=== PATIENT | female | born 1995 | race Caucasian/White ===

== ENCOUNTER 2023-06-17 12:47 | Outpatient (CLI) | payer BC ==
--- NOTE | 2023-06-17 13:45 | Sleep Patient Instructions ---
Sleep Center Visit Summary - Patient Visit Information Reason for Visit: Initial consultation - Patient Instructions Additional Instructions: You will continue with CPAP therapy with pressure set at 14 cmH2O. A supply prescription will be updated with your DME once we have a copy of sleep study. We encourage you to continue to try to lose weight. Please follow up with the sleep care office in 6 months. - Clinic Information Contact: [facility] [address] [place] [address] [email or web address] T: [phone]
--- NOTE | 2023-06-17 13:52 | SLEEP CARE CONSULTATION ---
Information from patient questionnaire entered by Jeet Hernandez. I have reviewed and concur with the information entered by Jeet Hernandez. This document represents the service I personally performed and the decisions made by me, Beverly Polanco ARNP. History of Present Illness Service Date and Time: 06/17/2023 1247 Reason for Visit: New patient, Previously diagnosed sleep apnea, sleep apnea on CPAP therapy Chief Complaint: reports: Other (UPDATE SUPPLIES) Date of Onset: 2014 Usual bedtime: ANYWHERE FROM 10PM-4AM Time it takes to fall asleep: HR Snores at night: Yes Observed to quit breathing while asleep: Yes Sleeps alone due to snoring: No Number of times waking at night: A FEW Reasons for waking at night: reports: Bathroom (PAIN UNKNOWN) Toss, Turn, or Twitch while sleeping: Yes Recalls having dreams: Yes Usually gets out of bed at: 10AM Feels refreshed in the morning: No Morning headache: No Sleepy or fatigued during the day: Yes Ever fallen asleep while driving: Yes Takes day naps: Yes Dreams during day naps: No Prior sleep studies: Yes Additional HPI information: LENORE SHUKLA was previously diagnosed to have unknown, AHI unknown, obstructive sleep apnea-hypopnea syndrome and comes in today to establish care for CPAP therapy. - Parasomnia Symptoms Ever been unable to move upon waking from sleep: No Walks in sleep: No Talks in sleep: No Ever acted out dreams in sleep: No Ever felt weak in the knees when startled or emotional: No Bothered by creepy, crawly, restless sensations in legs: No Problems with memory or concentration: No CPAP Compliance Data - Data Reviewed with Patient Average duration of nightly device use: 7 hours 22 minutes Compliance rate %: 97.8 (90/90 days used) Current pressure setting (cmH2O): 14 Average residual AHI: 0.8 Central apnea: 0 Obstructive apnea: 0.6 Hypopnea: 0.2 Average large leak: 3 secs Compliance data discussion: She has a Dreamstation that has not yet been replaced. She does not have a DME right now for supplies. She is using a nasal cushion mask. Subjective Patient concerns: reports: mask discomfort (has to tighten and will cause soreness on face), condensation in mask/hose (once, couple nights ago). denies: aerophagia, air blowing in eyes, mask leak noise, nasal congestion, dry mouth, nose, throat, epistaxis Observed to snore while using device: No Current pressure setting perceived as: comfortable On therapy, patient: reports: sleeping better, awakening more refreshed, being more awake and alert during the day, more rested overall. denies: drowsiness while driving Initial [place] Sleepiness Scale score: 7 (06/17/23) Past Medical History Past Medical History: reports: Diabetes, Anxiety, Depression, Attention deficit (ADHD) Social History The patient's occupation is a [employer]. Patient is and lives in [place]. Have you smoked in the past 12 months: No Alcohol use: Yes Alcohol amount and frequency: A DRINK EVERY OTHER WEEK Caffeine use: No Family History Family history of sleep disordered breathing: Yes Family Hx Sleep Apnea: Mother: Snoring, Sleep apnea - Treated, Father: Snoring, Sleep apnea - Treated, Grandparent: Snoring, Sleep apnea - Treated Allergies and Home Medications Known drug allergies: Yes (SULFA BASED) Drug allergies reviewed: Yes Home medication list reviewed: Yes Allergy and home medication list: Allergies No Known Drug Allergies Allergy (Verified 06/16/23 14:57) Home Medications Medication Instructions Recorded Confirmed Last Taken Type Cannabidiol (Cbd) [Epidiolex] See Rx Instructions .ROUTE .COMPLEX 06/17/23 06/17/23 Unknown History Semaglutide [Rybelsus] See Rx Instructions .ROUTE .COMPLEX 06/17/23 06/17/23 Unknown History buPROPion [Wellbutrin Xl] See Rx Instructions .ROUTE .COMPLEX 06/17/23 06/17/23 Unknown History metFORMIN [Glucophage] See Rx Instructions .ROUTE .COMPLEX 06/17/23 06/17/23 Unknown History Review of Systems Weight loss over past 5 years: 30 Cardiovascular: denies: high blood pressure Gastrointestinal: reports: nausea, diarrhea, abdominal pain. denies: heartburn Neurological: denies: headaches Psychiatric: reports: Attention Deficit Hyperactivity, anxiety Ear/Nose/Throat: reports: nasal congestion, sinus problems, tonsillectomy, wisdom teeth removed Endocrine: reports: sluggishness, too hot or cold, excessive thirst Musculoskeletal: reports: joint pain, neck pain, back pain Physical Exam Vital signs obtained and entered by: JEET C, MA Blood Pressure: 136/80 (LEFT ARM) Cuff size: long Heart Rate: 82 O2 Saturation: 99 Height: 5 ft 7.75 in Weight: 354 lb Body Mass Index: 54.2 BMI Classification: Morbidly Obese Neck circumference: 18.5 Soft palate: normal Hard palate: normal Uvula: normal Uvula visualization: 100% Mallampati Class I Tongue: enlarged in size with teeth iverson on lateral edges Tonsils: absent bilaterally Heart: regular rate and rhythm Lungs: clear bilaterally Impression and Plan 1. Obstructive Sleep Apnea-Hypopnea Syndrome, unknown, with good treatment compliance and good apnea control. On CPAP therapy, the patient has better sleep quality and is more rested overall. She has a Dreamstation that was not replaced by recall. She says that she heard about it and talked to them but thought they told her that since she had not used a cleaning machine on her CPAP she did not need to replace her machine. She then had a baby and just let the subject drop. She never noted any black debris in her machine or had any upper respiratory issues when using it. She says she cannot sleep without her machine because her sleep apnea is so severe. She is due for an update of machine in September 2023. We have requested but have not received her last sleep study. Once we get her sleep study, I will send a prescription for supplies to her chosen DME supplier. She voiced understanding. Patient's apnea severity and rationale for treatment to reduce apnea, improve sleep quality and reduce cardiovascular and cerebrovascular events was reviewed. I also reviewed the benefit of consistent device use of CPAP for diabetes, depression/anxiety. 2. Obesity, unspecified. Currently patients BMI is 54.2. Obesity increases the risk of apnea, CPAP pressure requirements and overall health risks especially cardiovascular and diabetes. Thus patient is advised to lose weight. * Continue CPAP pressure at 14 cmH2O * Update supply prescription once we have copy of sleep study * Notify me if snoring with mask or feeling that the pressure is too much or too little * Attempt to lose weight * Call this office if any problems using CPAP * Return for follow up in 6 months, or sooner if concerns arise Counseling Topics: Spare mask, Weight loss health impact Follow up with Sleep Care in: 6 months Visit Type: In Office Time Spent with Patient (minutes): 36 Provider Statement: I spent 100% of the Face to Face Visit with the patient with greater than 50% spent counseling the patient and coordination of care.
[2023-06-17 14:13] VITALS: BP 136/80; O2SAT 99
== END 2023-06-17 12:48 | disposition home or self-care (01) ==
LOC: SC 12:47
PROVIDERS: ATTEND Nurse Practitioner Family
DX: G47.33 Obstructive sleep apnea (adult) (pediatric) (principal); E66.01 Morbid (severe) obesity due to excess calories; Z68.43 Body mass index [BMI] 50.0-59.9, adult
CPT/HCPCS: 99203; 99212

== ENCOUNTER 2024-01-19 12:53 | Outpatient (CLI) | payer BC ==
--- NOTE | 2024-01-19 13:22 | Sleep Patient Instructions ---
Sleep Center Visit Summary - Patient Visit Information Reason for Visit: 8-month follow-up - Patient Instructions Additional Instructions: You were here for follow up of CPAP therapy. You will be continued on CPAP therapy with pressure at 14 cmH2O. I have added an order to update your PAP machine. Please call the office to schedule a compliance follow up once you get your new device. You should follow up with sleep care for compliance visit one month after obtaining new machine. You may contact us sooner for any questions or concerns. - Clinic Information Contact: [facility] [address] [place] [address] [email or web address] T: [phone]
--- NOTE | 2024-01-19 13:25 | SLEEP CARE CONSULTATION ---
Information from patient questionnaire entered by Ashley Hernandez. I have reviewed and concur with the information entered by Ashley Hernandez. This document represents the service I personally performed and the decisions made by me, Beverly Polanco ARNP. History of Present Illness Service Date and Time: 01/19/2024 1253 Previous diagnosis: Very Severe, Obstructive Sleep Apnea-Hypopnea Syndrome AHI: 67.4 (06/25/2018) Reason for follow up: other (8 MONTH) Equipment type: CPAP (Dreamstation, not replaced; CPAP MACHINE NEEDED) Equipment obtained from: Other (needs DME) Mask style: Nasal Mask brand: Respironics (Dreamwisp, medium cushion) Backup mask available: No Last cushion change: 2 months Prior sleep studies: Yes HPI additional information: LENORE SHUKLA was diagnosed to have very severe, AHI 67.4, obstructive sleep apnea- hypopnea syndrome and returned today for CPAP therapy 8 month follow-up. Sleep Study - Results Prior sleep studies: Yes CPAP Compliance Data - Data Reviewed with Patient Average duration of nightly device use: 6 hours 29 minutes Compliance rate %: 87.5 (180/184 days used) Current pressure setting (cmH2O): 14 Average residual AHI: 7.5 Average large leak: 0 secs Subjective Missed days of use due to: reports: mask issues, illness, other (CPAP shut off) Patient concerns: reports: condensation in mask/hose, other (machine would randomly shut off). denies: aerophagia, mask discomfort, air blowing in eyes, mask leak noise, nasal congestion, dry mouth, nose, throat, epistaxis Observed to snore while using device: No Current pressure setting perceived as: comfortable On therapy, patient: reports: sleeping better, awakening more refreshed, being more awake and alert during the day, more rested overall. denies: drowsiness while driving Initial [place] Sleepiness Scale score: 7 (06/17/23) Current [place] Sleepiness Scale score: 4 Allergies and Home Medications Known drug allergies: Yes (as listed) Drug allergies reviewed: Yes Home medication list reviewed: Yes (Metformin) Allergy and home medication list: Allergies Sulfa (Sulfonamide Antibiotics) Allergy (Intermediate, Verified 01/15/24 10:07) Hives Home Medications Medication Instructions Recorded Confirmed Last Taken Type Cannabidiol (Cbd) [Epidiolex] See Rx Instructions .ROUTE .COMPLEX 06/17/23 01/19/24 Unknown History Semaglutide [Rybelsus] See Rx Instructions .ROUTE .COMPLEX 06/17/23 01/19/24 Unknown History buPROPion [Wellbutrin Xl] See Rx Instructions .ROUTE .COMPLEX 06/17/23 01/19/24 Unknown History metFORMIN [Glucophage] See Rx Instructions .ROUTE .COMPLEX 06/17/23 01/19/24 Unknown History Review of Systems Review of systems same as previous: No (diabetes) Physical Exam Vital signs obtained and entered by: BEVERLY MACIAS-Isaac Blood Pressure: 151/84 Cuff size: long (right arm) Heart Rate: 80 O2 Saturation: 97 Height: 5 ft 8 in Weight: 342 lb 1.6 oz Weight change since last visit: 12 lbs loss Body Mass Index: 52.0 BMI Classification: Morbidly Obese Impression and Plan 1. Obstructive Sleep Apnea-Hypopnea Syndrome, very severe, with good treatment compliance and good apnea control. On CPAP therapy, the patient has better sleep quality and is more rested overall. Patient states her machine has shut off a couple of times during the night for no apparent reason. It then restarted working again. She remembered that we talked about her coming back to update her machine and that is why she is here today. The patients CPAP is over 5 years old and of reasonable use. In addition, it has starting shutting off randomly, a sign of malfunction. Thus, the CPAP will be updated. A DWO prescription will be made. Compliance guidelines for new device and follow up discussed. Patient's apnea severity and rationale for treatment to reduce apnea, improve sleep quality and reduce cardiovascular and cerebrovascular events was reviewed. I also reviewed the benefit of consistent device use of CPAP for diabetes, depression/anxiety, attention deficit. 2. Obesity, Morbid. Currently patients BMI is 52. She has lost weight. Obesity increases the risk of apnea, CPAP pressure requirements and overall health risks especially cardiovascular and diabetes. Thus patient is advised to continue to try to lose weight. * Continue CPAP pressure at 14 cmH2O * Update machine * Update supplies * Transfer DME * Notify me if snoring with mask or feeling that the pressure is too much or too little * Attempt to lose weight * Call this office if any problems using CPAP * Return for follow up one month after obtaining new CPAP, or sooner if concerns arise Counseling Topics: Spare mask, Weight loss health impact Prescriptions: Auto CPAP, Device supplies Plan: update CPAP and compliance followup Visit Type: In Office Time Spent with Patient (minutes): 25 Provider Statement: I spent 100% of the Face to Face Visit with the patient with greater than 50% spent counseling the patient and coordination of care.
[2024-01-19 13:36] VITALS: BP 151/84; O2SAT 97
== END 2024-01-19 12:54 | disposition home or self-care (01) ==
LOC: SC 12:53
PROVIDERS: ATTEND Nurse Practitioner Family
DX: G47.33 Obstructive sleep apnea (adult) (pediatric) (principal); E66.01 Morbid (severe) obesity due to excess calories; Z68.43 Body mass index [BMI] 50.0-59.9, adult
CPT/HCPCS: 99212; 99213

== ENCOUNTER 2024-04-05 10:47 | Outpatient (CLI) | payer BC ==
--- NOTE | 2024-04-05 11:10 | Sleep Patient Instructions ---
Sleep Center Visit Summary - Patient Visit Information Reason for Visit: First compliance with new device - Patient Instructions Additional Instructions: You were here for follow up of CPAP therapy. You will be continued on CPAP therapy with pressure at 14 cmH2O. You should follow up with sleep care in 12 months. You may contact us sooner for any questions or concerns. - Clinic Information Contact: [facility] [address] [place] [id number] [email or web address] T: [phone]
--- NOTE | 2024-04-05 11:14 | SLEEP CARE CONSULTATION ---
Information from patient questionnaire entered by Jeet Hernandez. I have reviewed and concur with the information entered by Jeet Hernandez. This document represents the service I personally performed and the decisions made by me, Beverly Polanco ARNP. History of Present Illness Service Date and Time: 04/05/2024 1047 Previous diagnosis: Very Severe, Obstructive Sleep Apnea-Hypopnea Syndrome AHI: 67.4 (06/25/2018) Reason for follow up: first compliance after device update Equipment type: CPAP (RESMED Airsense 11 S/U 02/17/24) Equipment obtained from: Other ([facility]; getting supplies) Mask style: Nasal Backup mask available: No Last cushion change: over a month Prior sleep studies: Yes HPI additional information: LENORE SHUKLA was diagnosed to have very severe, AHI 67.4, obstructive sleep apnea- hypopnea syndrome and returned today for CPAP therapy first compliance after updating device follow-up. Sleep Study - Results Prior sleep studies: Yes CPAP Compliance Data - Data Reviewed with Patient Average duration of nightly device use: 8 HRS 13 MINS Compliance rate %: 100 (02/17/24-03/17/24; days used) Current pressure setting (cmH2O): 14 Average residual AHI: 0.4 Central apnea: 0.1 Obstructive apnea: 0.2 Average large leak: 0 L/min Subjective Missed days of use due to: reports: illness Patient concerns: denies: aerophagia, mask discomfort, air blowing in eyes, mask leak noise, condensation in mask/hose, nasal congestion, dry mouth, nose, throat, epistaxis Observed to snore while using device: No Current pressure setting perceived as: comfortable On therapy, patient: reports: sleeping better, awakening more refreshed, being more awake and alert during the day, more rested overall. denies: drowsiness while driving Initial [place] Sleepiness Scale score: 7 (06/17/23) Current [place] Sleepiness Scale score: 2 (04/05/24) Allergies and Home Medications Known drug allergies: Yes (as listed) Drug allergies reviewed: Yes Home medication list reviewed: Yes (no changes) Allergy and home medication list: Allergies Sulfa (Sulfonamide Antibiotics) Allergy (Intermediate, Verified 04/05/24 10:54) Hives Review of Systems Review of systems same as previous: Yes (no changes) Physical Exam Vital signs obtained and entered by: JEET Gray MA Blood Pressure: 137/90 (RIGHT WRIST) Cuff size: regular Heart Rate: 92 O2 Saturation: 96 Height: 5 ft 8 in Weight: 353 lb 12.8 oz Body Mass Index: 53.8 BMI Classification: Morbidly Obese Impression and Plan 1. Obstructive Sleep Apnea-Hypopnea Syndrome, very severe, with good treatment compliance and good apnea control. On CPAP therapy, the patient has better sleep quality and is more rested overall. She has significant improvement of his sleep apnea and is comfortable with CPAP therapy. She is using a nasal cushion that she changed to that goes under her nose and likes it better. Patient's apnea severity and rationale for treatment to reduce apnea, improve sleep quality and reduce cardiovascular and cerebrovascular events was reviewed. I also reviewed the benefit of consistent device use of CPAP for diabetes, depression/anxiety, attention deficit. 2. Obesity, Morbid, unspecified. Currently patients BMI is 53.8. Obesity increases the risk of apnea, CPAP pressure requirements and overall health risks especially cardiovascular and diabetes. Thus patient is advised to lose weight. * Continue CPAP pressure at 14 cmH2O * Notify me if snoring with mask or feeling that the pressure is too much or too little * Attempt to lose weight * Call this office if any problems using CPAP * Return for follow up in 12 months, or sooner if concerns arise Counseling Topics: Weight loss health impact Follow up with Sleep Care in: 1 year Visit Type: In Office Time Spent with Patient (minutes): 12 Provider Statement: I spent 100% of the Face to Face Visit with the patient with greater than 50% spent counseling the patient and coordination of care.
[2024-04-05 11:17] VITALS: BP 137/90; O2SAT 96
== END 2024-04-05 10:48 | disposition home or self-care (01) ==
LOC: SC 10:47
PROVIDERS: ATTEND Nurse Practitioner Family
DX: G47.33 Obstructive sleep apnea (adult) (pediatric) (principal); E66.01 Morbid (severe) obesity due to excess calories; Z68.43 Body mass index [BMI] 50.0-59.9, adult
CPT/HCPCS: 99212